=== PATIENT | male | born 1955 | race Caucasian/White ===

== ENCOUNTER → 2017-06-07 | Outpatient (CLI) | payer OTHER ==
[~2017-06-07] MED LIST: AMARYL4 MG PO; ASPIRIN325 PO; AZOR 10-40 MG1 EACH PO; B COMPLEX1 EACH PO; CO Q-1010 MG PO; FISH OIL500 MG PO; LIPITOR80 MG PO; METOPROLOL TAR100 MG PO; MULTIVITAMINS1 EAC7 PO; NIACIN 100MG T100 M1 PO; NORCO 5-325 TA1 EACH PO; PERCOCET PO; PLAVIX 75 MG TA75 M1 PO; TRICOR145 MG PO; VITAMIN D1000 UNI1 PO; ZETIA10 MG PO
[2017-06-07 08:57] LABS: HEMATOCRIT 44.7 % (42.0-52.0); HEMOGLOBIN 15.1 gm/dL (14.0-18.0); MCH 28.8 pg (26.0-34.0); MCHC 33.8 g/dL (28.0-37.0); MCV 85.2 fL (80.0-100.0); RBC 5.25 mil/uL (4.50-6.00); RDW 13.8 % (10.5-14.5); WBC 6.5 thou/uL (4.0-11.0)
[2017-06-07 09:06] LABS: CALCIUM 9.3 mg/dL (8.5-10.1); CREATININE 0.9 mg/dL (0.7-1.3); POTASSIUM 4.2 mmol/L (3.5-5.1)
[2017-06-07 09:12] LABS: ALBUMIN 3.1 g/dL (3.4-5.0); TOTAL BILIRUBIN 0.7 mg/dL (<0.1-1.0)
== END ==
LOC: CAT 08:17
PROVIDERS: Internal Medicine Cardiovascular Disease
DX: I48.91 Unspecified atrial fibrillation (principal)

== ENCOUNTER 2020-05-08 01:18 | Observation (INO) | payer OTHER ==
[~2020-05-08] VITALS: Ht 182 cm; Wt 111.1 kg
[2020-05-08] VITALS (7 sets, daily range): BP systolic 146–184; BP diastolic 77–87
--- NOTE | ~2020-05-08 | HC ---
[facility] [place] [address] CONSULTATION Name: DARÍO VERONICA Room #: 218-P [facility] IN M.R.#: [id number] Admission: 05/08/20 Attend Phys: Mike Alexander MD Discharge: Date of : 59 Report #: [id number] THIS REPORT FOR: cc: Mike Alexander MD, Neal A. MD Khosla,Oliverio Rich MD ~ DATE OF SERVICE: 05/08/2020 HISTORY OF PRESENT ILLNESS: This is a 64-year-old male patient who was evaluated by me in the Emergency Room this morning at the request of Emergency Room physician, ____. This patient has a history of atrial fibrillation and he was on anticoagulation with Eliquis. He presented with acute onset of speech difficulty as well as left-sided headache. He has no prior history of any migraine. By the time I saw him, his speech difficulty has mostly resolved. REVIEW OF SYSTEMS: Positive for atrial fibrillation as well as aphasia. He usually follows up with Dr. Coles from cardiology perspective. He had ablation one time, but now he is on anticoagulation. He did undergo a CT angiogram of the head and neck and CT perfusion in the Emergency Room at the request of Emergency Room physician before. Neurology consult was called and those were unremarkable. He does have a cardiac history, high cholesterol, high blood pressure, and diabetes. He does not know what his blood sugar was when it happened. This was his relevant 14-point review of system. PAST MEDICAL HISTORY: Negative for migraine. FAMILY HISTORY: Unremarkable. SOCIAL HISTORY: He does not smoke now. He drinks alcohol, but not very often according to him. PHYSICAL EXAMINATION: Indicate he is alert, responsive when I saw him. He is able to follow simple and complex command. He still does not feel the speech is entirely normal, but he was able to do most of the things and discuss most of the things. His cranial nerve examination and neuromuscular examination appears mostly unremarkable. There is no meningeal sign. There is no carotid bruit. Cardiac examination was noncontributory. No respiratory difficulty. IMPRESSION: This patient is somewhat difficult because he does have a left sided headache and aphasia. Typically that is because of migraine if CT angiogram is normal. This patient's MRI is even normal. I still think the most likely diagnosis will be migraine, but this patient has no prior history of migraine. That makes things difficult in this patient. I think we need to do some more workup. I will suggest doing a sed rate in this patient ____ and see [address] [address] CONSULTATION Name: DARÍO VERONICA Room #: 218-P [facility] IN .R.#: [id number] Admission: 05/08/20 Attend Phys: Mike Alexander MD Discharge: Date of : 59 Report #: [id number] how he does. We will see if he has any PFO, which can be closed, but main management is going to be the management of vascular risk factor. Thank you very much for this referral. By: 1353 1603 Oliverio Cheek MD /nt
[~2020-05-08 01:18] MED LIST changes: +AVAPRO300 MG PO; +METFORMIN HCL500 MG PO; -METOPROLOL TAR100 MG PO; +MULTAQ 400 MG400 MG PO; +PRADAXA150 MG PO; +SAVAYSA60 MG PO; +TOPROL XL50 MG PO
[2020-05-08] MEDS ORDERED: ELIQUIS5 MG PO (01:23)
[2020-05-08] MEDS ORDERED: AVAPRO300 MG PO (01:25)
[2020-05-08] MEDS ORDERED: TADALAFIL5 M1 PO (01:25)
[2020-05-08] MEDS ORDERED: NORVASC 2.5 MG2.5 M1 PO (01:26)
[2020-05-08] MEDS ORDERED: CO Q-10100 M1 PO (01:26)
[2020-05-08] MEDS ORDERED: ASPIRIN EC325 M1 PO (01:26)
[2020-05-08] MEDS ORDERED: ZINC SULFATE220 MG PO (01:27)
--- NOTE | 2020-05-08 01:40 | NUR ---
LEVEL II CODE STROKE ACTIVATED ON PATIENT- EN ROUTE TO CT
[2020-05-08 02:25] LABS: ABSOLUTE NEUTROPHILS 5.1 thou/uL (1.4-8.2); BASOPHILS 1.2 % (0.0-2.0); EOSINOPHILS 3.4 % (0.0-3.0); HEMATOCRIT 42.4 % (42.0-52.0); HEMOGLOBIN 14.2 gm/dL (14.0-18.0); LYMPHOCYTES 24.5 % (24.0-44.0); MCH 29.6 pg (26.0-34.0); MCHC 33.4 g/dL (28.0-37.0); MCV 88.7 fL (80.0-100.0); MONOCYTES 8.7 % (1.0-8.0); PLATELET COUNT 264 thou/uL (150-400); POLYS 62.2 % (36.0-66.0); RBC 4.78 mil/uL (4.50-6.00); RDW 13.3 % (10.5-14.5); WBC 8.1 thou/uL (4.0-11.0)
[2020-05-08 02:38] LABS: CALCIUM 9.2 mg/dL (8.5-10.1); CREATININE 1.2 mg/dL (0.7-1.3)
[2020-05-08 02:41] LABS: TOTAL BILIRUBIN 0.4 mg/dL (0.2-1.0); TOTAL PROTEIN 6.9 g/dL (6.4-8.2)
[2020-05-08 08:41] LABS: CHOLESTEROL 135 mg/dL (<200); HDL CHOLESTEROL 33 mg/dL (>40); LDL CHOLESTEROL 38 mg/dL (<100); TC:HDL 4.1 Ratio (Not establshd); TRIGLYCERIDE 320 mg/dL (<150); VLDL 64 mg/dL (<40)
--- NOTE | 2020-05-08 08:45 | EKG ---
[facility] [place] [address] [place] [address] ELECTROCARDIOGRAM REPORT Name: DARÍO VERONICA Room #: 218-P ADM IN M.R.#: [id number] Admission: 05/08/20 Attend Phys: Mike Alexander MD Discharge: Date of : 59 Report #: [id number] THIS REPORT FOR: cc: Mike Alexander MD, Neal A. MD Lundgren,Evan Rdz MD [facility] ~ THIS REPORT FOR: //name// [facility] ED Test Date: 2020-05-08 Test Time: 01:59:46 Pat Name: DARÍO VERONICA Department: Room: 218 P Gender: M Cardiology Teacher: VALDO GARCIA : 1955 Requested By: Dafne Partida Order Number: [id number] MD: Evan Mills Measurements Intervals [place] Rate: 77 P: -2 [place]: 226 QRS: -2 QRSD: 102 T: 31 QT: 370 QTc: 419 Interpretive Statements Sinus arrhythmia Ventricular premature complex Prolonged [place] interval Abnormal R-wave progression, early transition Compared to ECG 12/13/2013 10:41:26 Ventricular premature complex(es) now present Electronically Signed On 05-08-2020 8:45:17 CDT by Evan Mills [email or web address] <ELECTRONICALLY SIGNED> By: Evan Mills MD, FACC 05/08/20 0845 8 8 Evan Mills MD, FAC /EPI
--- NOTE | 2020-05-08 08:47 | EKG ---
[facility] [address] [place] [address] ELECTROCARDIOGRAM REPORT Name: DARÍO VERONICA Room #: 218-P ADM IN M.R.#: [id number] Admission: 05/08/20 Attend Phys: Mike Alexander MD Discharge: Date of : 59 Report #: [id number] THIS REPORT FOR: cc: Mike Alexander MD, Neal A. MD Lundgren,Evan Rdz MD [facility] ~ THIS REPORT FOR: //name// [facility] Test Date: 2020-05-08 Test Time: 08:00:38 Pat Name: DARÍO VERONICA Department: Room: 218 Gender: M [employer] Custodian: NICOLETTE : 1955 Requested By: Nestor Viveros Order Number: [id number] MD: Evan Mills Measurements Intervals [place] Rate: 65 P: -35 NM: 237 QRS: -7 QRSD: 100 T: 8 QT: 389 QTc: 405 Interpretive Statements Sinus rhythm Prolonged [place] interval Compared to ECG 05/08/2020 01:59:46 Ventricular premature complex(es) no longer present Electronically Signed On 05-08-2020 8:47:18 CDT by Evan Mills [email or web address] <ELECTRONICALLY SIGNED> By: Evan Mills MD, [facility] 05/08/2047 9 9 Evan Mills MD, [facility] /EPI
--- NOTE | 2020-05-08 11:51 | 2DMMODE ---
[facility] [place] [address] 2 D/M-MODE ECHOCARDIOGRAM Name: DARÍO VERONICA Room #: 218-P ADM IN M.R.#: [id number] Admission: 05/08/20 Attend Phys: Mike Alexander MD Discharge: Date of : 59 Report #: [id number] THIS REPORT FOR: cc: Mike Alexander MD, Neal A. MD Lammoglia, Francisco J. MD ~ APPROVED REPORT Study performed: 05/08/2020 10:31:48 EXAM: Comprehensive 2D, Doppler, and color-flow Echocardiogram Patient Location: Echo lab Room #: 218 Status: routine BSA: 2.31 HR: 65 bpm BP: 164/77 mmHg Rhythm: NSR/PVCs Other Information Study Quality: Good Indications TIA. Hx: A-fib/ablation, HTN, HLD, DM. Echo Enhancing Agent Indication: Rule out Shunt Agent(s) / Amount(s) Used: Agitated Saline 6 cc 2D Dimensions RVDd: 38.74 mm IVSd: 10.56 (7-11mm) LVOT Diam: 25.29 (18-24mm) LVDd: 57.71 mm PWd: 10.44 (7-11mm) Ascending Ao: 36.91 (22-36mm) LVDs: 46.08 (25-40mm) Aortic Root: 35.76 mm Volumes Left Atrial Volume (Systole) Single Plane 4CH: 73.03 mL Single Plane 2CH: 68.31 mL LA ESV Index: 34.00 mL/m2 Aortic Valve AoV Peak Gera.: 1.85 m/s [facility] [address] [place] [address] 2 D/M-MODE ECHOCARDIOGRAM Name: GLENYSDARÍO Franklyn Room #: 218-P [facility] IN ..#: [id number] Admission: 05/08/20 Attend Phys: Mike Alexander, Discharge: Date of : 59 Report #: [id number] AO Peak Gr.: 13.68 mmHg LVOT Max P.37 mmHg LVOT Max V: 1.16 m/s MEAGHAN Vmax: 3.15 cm2 Mitral Valve E/A Ratio: 1.2 MV Decel. Time: 212.67 ms MV E Max Gera.: 0.71 m/s MV A Gera.: 0.58 m/s MV PHT: 61.68 ms IVRT: 110.73 ms Pulmonary Valve PV Peak Gera.: 0.80 m/s PV Peak Gr.: 2.56 mmHg Pulmonary Vein P Vein S: 0.73 m/s P Vein A: 0.23 m/s P Vein D: 0.33 m/s P Vein A Dur.: 138.4 msec P Vein S/D Ratio: 2.21 Tricuspid Valve TR Peak Gera.: 2.41 m/s RAP Estimate: 5.00 mmHg TR Peak Gr.: 23.15 mmHg PA Pressure: 28.00 mmHg Left Ventricle Left ventricle is at the upper limits of normal. There is normal LV segmental wall motion. There is normal left ventricular wall thickness. The left ventricular systolic function is normal. LVEF is 55-60%. Right Ventricle The right ventricle is normal size. The right ventricular systolic function is normal. Atria The left atrium size is normal. No shunting noted with contrast bubble injection. The right atrium size is normal. Aortic Valve The aortic valve is normal in structure. No aortic regurgitation is present. There is no aortic valvular stenosis. Mitral Valve The mitral valve is normal in structure. Mild mitral regurgitation. No evidence of mitral valve stenosis. [facility] [address] [place] [address] 2 D/M-MODE ECHOCARDIOGRAM Name: DARÍO VERONICA Room #: 218-P [facility] IN ..#: [id number] Admission: 05/08/20 Attend Phys: Mike Alexander, Discharge: Date of : 59 Report #: [id number] Tricuspid Valve The tricuspid valve is normal in structure. Trace tricuspid regurgitation. Estimated PAP 25-30mmHg. Pulmonic Valve The pulmonary valve is normal in structure. There is no pulmonic valvular regurgitation. Great Vessels The aortic root is normal in size. The ascending aorta is normal in size. IVC is normal in size and collapses >50% with inspiration. Pericardium There is no pericardial effusion. <Conclusion> Left ventricle is at the upper limits of normal. LVEF is 55-60%. The aortic valve is normal in structure. The mitral valve is normal in structure. Mild mitral regurgitation. The tricuspid valve is normal in structure. Trace tricuspid regurgitation. Estimated PAP 25-30mmHg. The pulmonary valve is normal in structure. There is no pericardial effusion. No shunting noted with contrast bubble injection. <ELECTRONICALLY SIGNED> By: Angelo Cooper MD 05/08/20 1151 115 115 Angelo Cooper MD /INF
--- NOTE | 2020-05-08 17:37 | NUR ---
ASSUMED CARE AT SHIFT CHANGE, ALERT AND ORIENTED X4. NIHS 0,MRI WAS DONE, AND RIVIEWED BY DR WALKER AND THE NEUROLOGIST. MEDICATION AND DISCHARGE INSTRUCTION RIVIEWED WITH PATIENT AND SPOUSE.
[2020-05-09 01:06] LABS: GLYCOHEMOGLOBIN (HGB A1C) 7.1 % (4.8-5.6)
== END 2020-05-08 18:40 | disposition home or self-care (01) ==
LOC: ER 01:18 → 2N 05:27 → EROBS 05:27 → 2N 05:27
PROVIDERS: Emergency Medicine; Nurse Practitioner Adult Health; ADMIT Family Medicine; ATTEND Family Medicine
DX: I63.9 Cerebral infarction, unspecified (principal); R51.9 Headache, unspecified; I10 Essential (primary) hypertension; E11.9 Type 2 diabetes mellitus without complications; E78.5 Hyperlipidemia, unspecified; I48.91 Unspecified atrial fibrillation; D68.59 Other primary thrombophilia; Z79.82 Long term (current) use of aspirin; Z79.84 Long term (current) use of oral hypoglycemic drugs; Z79.899 Other long term (current) drug therapy; Z87.891 Personal history of nicotine dependence

== ENCOUNTER → 2020-07-01 | Outpatient (CLI) | payer OTHER ==
[~2020-07-01] MED LIST changes: +ASPIRIN EC325 M1 PO; +CO Q-10100 M1 PO; +ELIQUIS5 MG PO; +NORVASC 2.5 MG2.5 M1 PO; +TADALAFIL5 M1 PO; +ZINC SULFATE220 MG PO
== END ==
LOC: SJCVCIMAG 07:14
PROVIDERS: ATTEND Internal Medicine Cardiovascular Disease
DX: I48.0 Paroxysmal atrial fibrillation (principal); I44.0 Atrioventricular block, first degree; R00.0 Tachycardia, unspecified; I25.10 Atherosclerotic heart disease of native coronary artery without angina pectoris; I10 Essential (primary) hypertension; E78.5 Hyperlipidemia, unspecified; Z79.899 Other long term (current) drug therapy; Z87.891 Personal history of nicotine dependence

== ENCOUNTER → 2020-07-15 | Outpatient (CLI) | payer OTHER | LOC: LAB 09:24 | PROVIDERS: ATTEND Family Medicine | DX: Z20.828 Contact with and (suspected) exposure to other viral communicable diseases (principal) ==